=== PATIENT | female | born 1960 | race Caucasian/White ===

== ENCOUNTER → 2019-04-17 07:02 | Outpatient (CLI) | payer SELFPAY ==
[2019-04-17 07:41] LABS: Add Manual Diff / Slide Review NO; Basophils Absolute Auto 0 /uL (0-100); Basophils Percent Auto 0.6 % (0-2); Eosinophils Absolute Auto 300 /uL (0-450); Hematocrit 42.6 % (36-46); Hemoglobin 14.4 g/dL (12.0-16.0); Lymphocytes Absolute Auto 2400 /uL (1100-4500); Lymphocytes Percent Auto 30.2 % (25-40); Mean Corpuscular HGB Conc 33.8 % (30-36); Mean Corpuscular Volume 88.8 fL (80-100); Monocytes Absolute Auto 700 /uL (0-900); Monocytes Percent Auto 8.3 % (3-14); Neutrophils Absolute Auto 4500 /uL (1500-7000); Neutrophils Percent Auto 56.9 % (50-75); Platelet Count 346 X10^3/uL (150-400); Red Cell Distribution Width 13.2 % (11.6-14.8)
[2019-04-17 07:58] LABS: Alanine Aminotransferase 19 IU/L (9-52); Albumin 4.5 g/dL (3.5-5.0); Albumin Globulin Ratio 1.5 (1.0-2.8); Alkaline Phosphatase 90 U/L (38-126); Aspartate Aminotransferase 22 IU/L (14-36); BUN Creatinine Ratio 28.6 (6-22); Bilirubin Total 0.4 mg/dL (0.2-1.3); Blood Urea Nitrogen 20 mg/dL (7-17); Calcium 9.6 mg/dL (8.4-10.2); Carbon Dioxide 27 mmol/L (22-32); Chloride 105 mmol/L (98-107); Cholesterol 236 mg/dL (140-199); Estimated Glomerular Filt Rate > 60.0 mL/min (>60); Globulin 3.1 g/dL (1.7-4.1); Glucose 98 mg/dL (70-100); HDL Cholesterol 38 mg/dL (40-60); HEMOLYSIS < 15 (0-50); LDL Cholesterol Calculated 177 mg/dL (<100); Potassium 4.7 mmol/L (3.4-5.1); Sodium 142 mmol/L (137-145); Total Protein 7.6 g/dL (6.3-8.2); Triglycerides 104 mg/dL (35-150)
[2019-04-17 08:56] LABS: Thyroid Stimulating Hormone 2.57 uIU/mL (0.47-4.68)
== END ==
DX: Z13.228 Encounter for screening for other metabolic disorders (principal); Z13.220 Encounter for screening for lipoid disorders; Z13.0 Encounter for screening for diseases of the blood and blood-forming organs and certain disorders involving the immune mechanism; Z13.29 Encounter for screening for other suspected endocrine disorder
CPT/HCPCS: 36415; 80053; 80061; 84443; 85025

== ENCOUNTER → 2020-10-27 08:42 | Outpatient (CLI) | payer OTHER, SELFPAY ==
[2020-10-27] MEDS: COVID-19 VACC #1, MRNA(MOD) 100 MCG/0.5 ML VIAL IM (08:50)
== END ==
PROVIDERS: Visit Provider Internal Medicine
DX: Z23 Encounter for immunization (principal)
CPT/HCPCS: 0011A; 0012A; 91301

== ENCOUNTER → 2020-11-24 07:59 | Outpatient (CLI) | payer OTHER, SELFPAY ==
[2020-11-24] MEDS: COVID-19 VACC #2, MRNA(MOD) 100 MCG/0.5 ML VIAL IM (08:05)
== END ==
PROVIDERS: Visit Provider Internal Medicine
DX: Z23 Encounter for immunization (principal)
CPT/HCPCS: 0012A; 91301

== ENCOUNTER → 2022-08-03 10:25 | Outpatient (CLI) | payer SELFPAY ==
--- NOTE | 2022-08-03 10:30 | DI.RAD.S_ITS ---
PROCEDURE: XR KNEE LT 3V INDICATIONS: pain TECHNIQUE: 3 views of the knee were acquired. COMPARISON: None. FINDINGS: Bones: No fractures or dislocations. Moderate tricompartmental osteoarthritis is seen most notably in lateral femoral tibial compartment with joint space narrowing, subchondral sclerosis and prominent marginal osteophyte formation. No suspicious bony lesions. Soft tissues: Small suprapatella joint effusion. No suspicious soft tissue calcifications. IMPRESSION: Moderate tricompartmental osteoarthritis and small suprapatellar joint effusion. No fracture or dislocation. Dictated by: Samy Huston M.D. on 08/03/2022 at 11:08 Approved by: Samy Huston M.D. on 08/03/2022 at 11:25
--- NOTE | 2022-08-03 10:30 | DI.RAD.S_ITS ---
PROCEDURE: XR KNEE RT 3V INDICATIONS: pain TECHNIQUE: 3 views of the knee were acquired. COMPARISON: None. FINDINGS: Bones: Patient is status post prior ACL repair with postsurgical changes. Increased radiolucency surrounding tibial screw is noted concerning for hardware loosening suggest clinical correlation. Moderate to severe tricompartmental osteoarthritis is noted most notably in medial femoral tibial compartment. No suspicious bony lesions. Soft tissues: There is small to moderate joint effusion. No suspicious soft tissue calcifications. IMPRESSION: Prior ACL repair. Questionable increased lucency surrounding tibial screw, suggest clinical correlation for possible loosening. Severe tricompartmental osteoarthritis. No acute fracture or dislocation. Small to moderate joint effusion. Dictated by: Samy Huston M.D. on 08/03/2022 at 11:25 Approved by: Samy Huston M.D. on 08/03/2022 at 11:26
== END ==
PROVIDERS: PCP Family Medicine; Referring Provider Family Medicine; Visit Provider Family Medicine
DX: M17.0 Bilateral primary osteoarthritis of knee (principal); M25.461 Effusion, right knee; M25.462 Effusion, left knee; M25.561 Pain in right knee; M25.562 Pain in left knee; Z98.890 Other specified postprocedural states
CPT/HCPCS: 73562

== ENCOUNTER → 2022-08-10 07:20 | Outpatient (CLI) | payer SELFPAY ==
[2022-08-10 08:14] LABS: Add Manual Diff / Slide Review NO; Basophils Absolute Auto 100 /uL (0-100); Basophils Percent Auto 0.8 % (0-2); Eosinophils Absolute Auto 600 /uL (0-450); Eosinophils Percent Auto 6.8 % (2-4); Hematocrit 43.8 % (36-46); Hemoglobin 14.6 g/dL (12.0-16.0); Lymphocytes Absolute Auto 2500 /uL (1100-4500); Lymphocytes Percent Auto 28.7 % (25-40); Mean Corpuscular HGB Conc 33.3 % (30-36); Mean Corpuscular Hemoglobin 29.3 PG (26-34); Monocytes Absolute Auto 800 /uL (0-900); Monocytes Percent Auto 8.7 % (3-14); Neutrophils Absolute Auto 4800 /uL (1500-7000); Platelet Count 352 X10^3/uL (150-400); Red Blood Cell Count 4.98 X10^6/uL (4.0-5.2); Red Cell Distribution Width 13.7 % (11.6-14.8); White Blood Cell Count 8.7 X10^3/uL (4.5-11.0)
[2022-08-10 08:38] LABS: BUN Creatinine Ratio 27.3 (6-22); Blood Urea Nitrogen 24 mg/dL (7-17); Calcium 9.3 mg/dL (8.4-10.2); Carbon Dioxide 24 mmol/L (22-32); Chloride 105 mmol/L (98-107); Cholesterol 265 mg/dL (140-199); Estimated Glomerular Filt Rate > 60 mL/min (>60); Glucose 86 mg/dL (80-110); HDL Cholesterol 50 mg/dL (40-60); HEMOLYSIS < 15 (0-50); LDL Cholesterol Calculated 194 mg/dL (<100); Potassium 4.3 mmol/L (3.4-5.1); Sodium 138 mmol/L (137-145); Triglycerides 106 mg/dL (35-150)
[2022-08-10 09:50] LABS: Free T4, Direct Thyroxine 0.74 ng/dL (0.78-2.19)
== END ==
PROVIDERS: PCP Family Medicine; Referring Provider Family Medicine; Visit Provider Family Medicine
DX: Z13.220 Encounter for screening for lipoid disorders (principal); Z86.39 Personal history of other endocrine, nutritional and metabolic disease
CPT/HCPCS: 36415; 80048; 80061; 84439; 84443; 85025

== ENCOUNTER 2022-12-17 13:45 | Outpatient (RCR) | payer SELFPAY ==
--- NOTE | 2022-11-05 17:49 | PT.OIE ---
Current Diagnoses Bilateral primary osteoarthritis of knee (11/05/22) Pain in right knee (11/05/22) Pain in left knee (11/05/22) Past Medical History (Last Updated 09/05/22 @ 12:28 by Augustine San DO) Bilateral knee pain Hypothyroidism (acquired) Pure hypercholesterolemia Past Surgical History (Last Updated 08/07/22 @ 10:37 by Beti Alonzo) Anesthesia Hx of knee surgery (~1980) Hx of knee surgery (~1988) Visit Care Team Role Provider Type Augustine San DO Family Provider Physician Primary Care Provider Specialty: Family Practice Address: [address] [place] [address], [id number] Email: Nigel Landaverde MD Attending Provider Non-Staff Referring Provider Specialty: Orthopedics Orthopedic Surgery Address: [address] [place] [address], [id number] Email: Physical Therapy Initial Evaluation PT-OP-A Visit Information Start: 11/05/22 17:32 Freq: Status: Active Protocol: Document 11/05/22 12:00 DCW (Rec: 11/05/22 17:38 [facility] [id number]) Out-Patient Physical Therapy Visit Information Visit Information Visit Type Initial Evaluation Visit Start Time 12:00 Visit Stop Time 12:35 Total Visit Minutes 35 Visit Number 1 Number of SLASHER TENDER Visits 0 Evaluation Information Evaluation Date 11/05/22 PT-OP-B Current Condition Start: 11/05/22 17:32 Freq: Status: Active Protocol: Document 11/05/22 12:00 DCW (Rec: 11/05/22 17:38 [facility] [id number]) Current Condition History of Current Condition Onset Date 11/07/22 Current Complaints Pre-op B TKA History of Current Condition Pt is a 61 year old female presenting to skilled therapy for a pre-op assessment and planning session two days prior to her bilateral TKA, which she is undergoing on . Pt reports she has a planned one night stay in the hospital post-op, and is then planning on returning home with 's assistance. reports he has taken off work for the two weeks following pt's surgery. Report they have no stairs into the home, and no stairs she will need to use upon returning home, as she will be able to stay on the first floor. They already have a FWW, SPC, BSC, and a high recliner to assist in getting up into standing. PT-OP-C Subjective Start: 11/05/22 17:32 Freq: Status: Active Protocol: Document 11/05/22 12:00 DCW (Rec: 11/05/22 17:38 DCW [id number]) OP-PT Subjective Patient Comments Patient Comments I have had a few family memebers who all did a bilateral TKA, so I have a pretty good idea of what I'm getting myself into. PT-OP-K Range of Motion Start: 11/05/22 17:32 Freq: Status: Active Protocol: Document 11/05/22 12:00 DCW (Rec: 11/05/22 17:39 DCW [id number]) Knee Goniometric Range of Motion Knee Right Knee ROM WFL No Patient Position Sitting Flexion Active (degrees) 90 Extension Active (degrees) 0 Left Knee ROM WFL No Patient Position Sitting Flexion Active (degrees) 90 Extension Active (degrees) 0 PT-OP-Q Treatments Start: 11/05/22 17:32 Freq: Status: Active Protocol: Document 11/05/22 12:00 DCW (Rec: 11/05/22 17:39 DCW [id number]) Self-Care/Home Management Treatment Education Other Education Reviewed post-op HEP, pain management, post-op expectations, safety, and gait /transfer strategies. PT-OP-T Assessment and Plan Start: 11/05/22 17:32 Freq: Status: Active Protocol: Document 11/05/22 12:00 DCW (Rec: 11/05/22 17:48 DCW [id number]) Physical Therapy Assessment Rehab Potential Rehabilitation Potential Good Evaluation Complexity Number of Personal Factors/Comorbidities 0 Number of Body Systems Impaired 1-2 Clinical Presentation at Evaluation Stable Goals One Impairment Pt does not have an appropriate home exercise program Short Term Goal (STG) Pt to be independent and compliant with an appropriate post-op HEP STG Duration 11/12/22 Assessment Summary Assessment Pt presents to skilled therapy for a pre-op assessment and education session prior to her bilateral TKA scheduled for . Pt currently displays fairly limited ROM bilaterally , ~0-90? on both knees. Reviewed post-op HEP, which pt demonstrates good understanding for, as well as post-surgical expectations, gait/transfer tips, FWW sizing /fitting, limiting use of pillows under knees, icing/ pain modalities, and reviewed likely treatment scenarios. Per referral, pt supposed to attend therapy 3-4x 1st week, 3x 2nd week, and 2x/week afterward. Unfortunately, due to pt finances, pt is only going to attend 1x/week, and will just do as much as she can independently at home. Will reassess pt upon return from surgery at next PT appointment on 11/12/22. Physical Therapy Plan Frequency and Duration Frequency of Treatment 1-2x/week Plan of Care Start Date 11/05/22 Plan of Care End Date 11/19/22 Therapeutic Interventions Therapeutic Interventions Balance Training,Gait Training ,Home Exercise Program,Joint Mobilizations,Manual Therapy, Neuromuscular Re-education, Patient/Caregiver Education, Self-Care/Home Management,Soft Tissue Mobilization,Taping, Therapeutic Activities, Therapeutic Exercises Modalities Cold Pack/Ice Massage,Electric Stimulation,Hot Packs, Ultrasound Next Visit Focus/Plan Next Note Type Re-Evaluation Next Visit Plan Post-op bilateral TKA re- evaluation
--- NOTE | 2022-11-05 17:49 | PT.OPPOC ---
Physical, Occupational & Speech Therapy At [facility] Current Diagnoses Bilateral primary osteoarthritis of knee (11/05/22) Pain in right knee (11/05/22) Pain in left knee (11/05/22) Visit Care Team Role Provider Type Augustine San DO Family Provider Physician Primary Care Provider Specialty: Family Practice Address: [address] [place] [address], [phone] Email: Nigel Landaverde MD Attending Provider Non-Staff Referring Provider Specialty: Orthopedics Orthopedic Surgery Address: [address] [place] [address], [phone] Email: Plan Of Care PT-OP-T Assessment and Plan Start: 11/05/22 17:32 Freq: Status: Active Protocol: Document 11/05/22 12:00 DCW (Rec: 11/05/22 17:48 DCW [id number]) Physical Therapy Assessment Rehab Potential Rehabilitation Potential Good Evaluation Complexity Number of Personal Factors/Comorbidities 0 Number of Body Systems Impaired 1-2 Clinical Presentation at Evaluation Stable Goals One Impairment Pt does not have an appropriate home exercise program Short Term Goal (STG) Pt to be independent and compliant with an appropriate post-op HEP STG Duration 11/12/22 Assessment Summary Assessment Pt presents to skilled therapy for a pre-op assessment and education session prior to her bilateral TKA scheduled for . Pt currently displays fairly limited ROM bilaterally , ~0-90? on both knees. Reviewed post-op HEP, which pt demonstrates good understanding for, as well as post-surgical expectations, gait/transfer tips, FWW sizing /fitting, limiting use of pillows under knees, icing/ pain modalities, and reviewed likely treatment scenarios. Per referral, pt supposed to attend therapy 3-4x 1st week, 3x 2nd week, and 2x/week afterward. Unfortunately, due to pt finances, pt is only going to attend 1x/week, and will just do as much as she can independently at home. Will reassess pt upon return from surgery at next PT appointment on 11/12/22. Physical Therapy Plan Frequency and Duration Frequency of Treatment 1-2x/week Plan of Care Start Date 11/05/22 Plan of Care End Date 11/19/22 Therapeutic Interventions Therapeutic Interventions Balance Training,Gait Training ,Home Exercise Program,Joint Mobilizations,Manual Therapy, Neuromuscular Re-education, Patient/Caregiver Education, Self-Care/Home Management,Soft Tissue Mobilization,Taping, Therapeutic Activities, Therapeutic Exercises Modalities Cold Pack/Ice Massage,Electric Stimulation,Hot Packs, Ultrasound Next Visit Focus/Plan Next Note Type Re-Evaluation Next Visit Plan Post-op bilateral TKA re- evaluation Plan of Care Dates Plan of Care Start Date 11/05/22 Plan of Care End Date 11/19/22 Electronically Signed by: Abhishek Yoon, PT 11/05/22 7904 If you are in agreement with this Plan of Care, please return a signed and dated copy. I have reviewed this Plan of Care and certify that the skilled therapy services above are required to meet the patient?s needs. Physician Signature Date Printed Name and Credentials Clinical Instructor Signature Printed Name and Credentials
--- NOTE | 2022-11-12 12:55 | PT.OTRE ---
Current Diagnoses Bilateral primary osteoarthritis of knee (11/12/22) Pain in right knee (11/12/22) Pain in left knee (11/12/22) Past Medical History (Last Updated 09/05/22 @ 12:28 by Augustine San DO) Bilateral knee pain Hypothyroidism (acquired) Pure hypercholesterolemia Surgical History (Last Updated 08/07/22 @ 10:37 by Beti Alonzo) Anesthesia Hx of knee surgery (~1980) Hx of knee surgery (~1988) Visit Care Team Role Provider Type uAgustine San DO Family Provider Physician Primary Care Provider Specialty: Family Practice Address: [address] [place] [address], [phone] Email: Nigel Landaverde MD Attending Provider Non-Staff Referring Provider Specialty: Orthopedics Orthopedic Surgery Address: [address] [place] [address], [address] Email: Physical Therapy Re-Evaluation PT-OP-A Visit Information Start: 11/05/22 17:32 Freq: Status: Active Protocol: Document 11/12/22 12:00 DCW (Rec: 11/12/22 12:54 [facility] [id number]) Out-Patient Physical Therapy Visit Information Visit Information Visit Type Re-Evaluation Visit Start Time 12:00 Visit Stop Time 12:45 Total Visit Minutes 45 Visit Number 2 Number of SOILS ANALYST Visits 0 Evaluation Information Evaluation Date 11/05/22 PT-OP-B Current Condition Start: 11/05/22 17:32 Freq: Status: Active Protocol: Document 11/12/22 12:00 DCW (Rec: 11/12/22 12:54 [facility] [id number]) Current Condition History of Current Condition Onset Date 11/07/22 Current Complaints B TKA History of Current Condition Pt returnes to PT after undergoing bilateral TKA on . Pt had a pre-op rehab appointment last week, and demonstrated good understanding of post-op rehab plans. Pt experiencing fairly minimal pain today, ambulating with FWW for support, not overly reliant on UEs. Pt currently pretty happy with mobility level. PT-OP-C Subjective Start: 11/05/22 17:32 Freq: Status: Active Protocol: Document 11/12/22 12:00 DCW (Rec: 11/12/22 12:54 DCW [id number]) OP-PT Subjective Patient Comments Patient Comments It's much better than I was actually expecting. PT-OP-D Balance Start: 11/05/22 17:32 Freq: Status: Active Protocol: Document 11/12/22 12:00 DCW (Rec: 11/12/22 12:54 DCW [id number]) OP-PT Balance Assessment Sitting Balance Static Sitting Balance Ability Normal Dynamic Sitting Balance Ability Normal Standing Balance Static Standing Balance Ability Good Dynamic Standing Balance Ability Fair Jara Fall Scale Copyright Permission Marek JOHNSON, Marek RM, Satish SJ. Development of a scale to identify the fall- prone patient. Can J Aging 1989;8;366-7. Nerissa Jara (2009). Preventing patient falls. (2nd ed). [place]: [employer]. PT-OP-E Functional Tests Start: 11/05/22 17:32 Freq: Status: Active Protocol: Document 11/12/22 12:00 DCW (Rec: 11/12/22 12:54 DCW [id number]) Functional Tests 6 Minute Walk Test Distance 327 Device Used FWW Comments .91 ft/sec PT-OP-K Range of Motion Start: 11/05/22 17:32 Freq: Status: Active Protocol: Document 11/12/22 12:00 DCW (Rec: 11/12/22 12:54 DCW [id number]) Knee Goniometric Range of Motion Knee Measured in Degrees Right Knee ROM WFL No Patient Position Sitting Flexion Active (degrees) 90 Flexion Passive (degrees) 99 Extension Active (degrees) 0 Extension Passive (degrees) 0 Comments 8 deg extension lag Left Knee ROM WFL No Patient Position Sitting Flexion Active (degrees) 84 Flexion Passive (degrees) 90 Extension Active (degrees) 0 Comments No extension lag PT-OP-M Strength Start: 11/05/22 17:32 Freq: Status: Active Protocol: Document 11/12/22 12:00 DCW (Rec: 11/12/22 12:54 DCW [id number]) Knee Strength Knee Manual Muscle Testing Right Flexion (S2) 3 Fair Extension (L3) 3+ Fair+ Left Flexion (S2) 3 Fair Extension (L3) 3+ Fair+ PT-OP-Q Treatments Start: 11/05/22 17:32 Freq: Status: Active Protocol: Document 11/12/22 12:00 DCW (Rec: 11/12/22 12:55 DCW [id number]) Cardio Equipment Recumbent Bicycle Duration (Minutes) 5 Seat Position 4 Other full rotations fwd/bkwd PT-OP-T Assessment and Plan Start: 11/05/22 17:32 Freq: Status: Active Protocol: Document 11/12/22 12:00 DCW (Rec: 11/12/22 12:54 DC[facility] [id number]) Physical Therapy Assessment Goals Three Impairment Pt ambulates 327' with FWW during 6MWT Chcf Goal (LTG) Pt to increased distance ambulated during 6MWT to at least 709' without an AD. This puts her gait speed at >1.97 ft/sec, below which is indicative of further functional decline. LTG Duration 01/10/23 Two Impairment Knee flexion AROM limited to 90? R and 84? L Dielectric Embossing Machine Operator Goal (LTG) Pt to increase bilateral flexion to 120? in order to improve ability to perform daily activities LTG Duration 01/10/23 One Impairment Pt does not have an appropriate home exercise program Short Term Goal (STG) Pt to be independent and compliant with an appropriate post-op HEP STG Duration 12/10/22 Assessment Summary Assessment Pt doing incredivly well POD # 5, extension in bilateral knees to 0?, slight extension lag (8?) in right knee. Pt ambulating with good posture and appropriate step-through gait pattern using FWW. Pt has thus far been very compliant with her post-op HEP. Was able to perform full rotations on the recumbent bike already, both forward and backward. Pt should benefit from continued skilled therapy focusing on improving gait, ROM, balance, and functional mobility. Physical Therapy Plan Frequency and Duration Frequency of Treatment 1-2x/week Plan of Care Start Date 11/12/22 Plan of Care End Date 01/10/23 Therapeutic Interventions Therapeutic Interventions Balance Training,Gait Training ,Home Exercise Program,Joint Mobilizations,Manual Therapy, Neuromuscular Re-education, Patient/Caregiver Education, Self-Care/Home Management,Soft Tissue Mobilization,Taping, Therapeutic Activities, Therapeutic Exercises Modalities Cold Pack/Ice Massage,Electric Stimulation,Hot Packs, Ultrasound Next Visit Focus/Plan Next Note Type Treatment Note Next Visit Plan Active/passive ROM, strengthening, weaning off AD as tolerated
--- NOTE | 2022-11-12 12:55 | PT.OPPOC ---
Physical, Occupational & Speech Therapy At [facility] Current Diagnoses Bilateral primary osteoarthritis of knee (11/12/22) Pain in right knee (11/12/22) Pain in left knee (11/12/22) Visit Care Team Role Provider Type Augustine San DO Family Provider Physician Primary Care Provider Specialty: Family Practice Address: [address] [place] [address], [phone] Email: Nigel Landaverde MD Attending Provider Non-Staff Referring Provider Specialty: Orthopedics Orthopedic Surgery Address: [address] [place] [address], [address] Email: Plan Of Care PT-OP-T Assessment and Plan Start: 11/05/22 17:32 Freq: Status: Active Protocol: Document 11/12/22 12:00 DCW (Rec: 11/12/22 12:54 DCW [id number]) Physical Therapy Assessment Goals Three Impairment Pt ambulates 327' with FWW during 6MWT Private Eye Goal (LTG) Pt to increased distance ambulated during 6MWT to at least 709' without an AD. This puts her gait speed at >1.97 ft/sec, below which is indicative of further functional decline. LTG Duration 01/10/23 Two Impairment Knee flexion AROM limited to 90? R and 84? L Private Eye Goal (LTG) Pt to increase bilateral flexion to 120? in order to improve ability to perform daily activities LTG Duration 01/10/23 One Impairment Pt does not have an appropriate home exercise program Short Term Goal (STG) Pt to be independent and compliant with an appropriate post-op HEP STG Duration 12/10/22 Assessment Summary Assessment Pt doing incredivly well POD # 5, extension in bilateral knees to 0?, slight extension lag (8?) in right knee. Pt ambulating with good posture and appropriate step-through gait pattern using FWW. Pt has thus far been very compliant with her post-op HEP. Was able to perform full rotations on the recumbent bike already, both forward and backward. Pt should benefit from continued skilled therapy focusing on improving gait, ROM, balance, and functional mobility. Physical Therapy Plan Frequency and Duration Frequency of Treatment 1-2x/week Plan of Care Start Date 11/12/22 Plan of Care End Date 01/10/23 Therapeutic Interventions Therapeutic Interventions Balance Training,Gait Training ,Home Exercise Program,Joint Mobilizations,Manual Therapy, Neuromuscular Re-education, Patient/Caregiver Education, Self-Care/Home Management,Soft Tissue Mobilization,Taping, Therapeutic Activities, Therapeutic Exercises Modalities Cold Pack/Ice Massage,Electric Stimulation,Hot Packs, Ultrasound Next Visit Focus/Plan Next Note Type Treatment Note Next Visit Plan Active/passive ROM, strengthening, weaning off AD as tolerated Plan of Care Dates Plan of Care Start Date 11/12/22 Plan of Care End Date 01/10/23 Electronically Signed by: Abhishek Yoon, PT 11/12/22 6716 If you are in agreement with this Plan of Care, please return a signed and dated copy. I have reviewed this Plan of Care and certify that the skilled therapy services above are required to meet the patient?s needs. Physician Signature Date Printed Name and Credentials Clinical Instructor Signature Printed Name and Credentials
--- NOTE | 2022-11-20 09:05 | PT.OTN ---
Current Diagnoses Bilateral primary osteoarthritis of knee (11/20/22) Pain in right knee (11/20/22) Pain in left knee (11/20/22) Physical Therapy Treatment Note PT-OP-A Visit Information Start: 11/05/22 17:32 Freq: Status: Active Protocol: Document 11/20/22 07:26 [facility] (Rec: 11/20/22 09:05 [facility] [id number]) Out-Patient Physical Therapy Visit Information Visit Information Visit Type Treatment Note Visit Start Time 07:31 Visit Stop Time 08:13 Total Visit Minutes 42 Visit Number 3 Number of PLUGGER Visits 0 PT-OP-B Current Condition Start: 11/05/22 17:32 Freq: Status: Active Protocol: Document 11/12/22 12:00 [facility] (Rec: 11/12/22 12:54 DCW [id number]) Current Condition History of Current Condition Onset Date 11/07/22 Current Complaints B TKA History of Current Condition Pt returnes to PT after undergoing bilateral TKA on . Pt had a pre-op rehab appointment last week, and demonstrated good understanding of post-op rehab plans. Pt experiencing fairly minimal pain today, ambulating with FWW for support, not overly reliant on UEs. Pt currently pretty happy with mobility level. PT-OP-C Subjective Start: 11/05/22 17:32 Freq: Status: Active Protocol: Document 11/20/22 07:26 [facility] (Rec: 11/20/22 09:05 [facility] [id number]) OP-PT Subjective Patient Comments Patient Comments Pt reports got her shanel out yesterday and her appt went well. PA said incisions look pretty good. Pt reports she has dizziness on/off. PT-OP-D Balance Start: 11/05/22 17:32 Freq: Status: Active Protocol: Document 11/12/22 12:00 [facility] (Rec: 11/12/22 12:54 [facility] [id number]) OP-PT Balance Assessment Sitting Balance Static Sitting Balance Ability Normal Dynamic Sitting Balance Ability Normal Standing Balance Static Standing Balance Ability Good Dynamic Standing Balance Ability Fair Jara Fall Scale Copyright Permission PT-OP-E Functional Tests Start: 11/05/22 17:32 Freq: Status: Active Protocol: Document 11/12/22 12:00 [facility] (Rec: 11/12/22 12:54 [facility] [id number]) Functional Tests 6 Minute Walk Test Distance 327 Device Used FWW Comments .91 ft/sec PT-OP-K Range of Motion Start: 11/05/22 17:32 Freq: Status: Active Protocol: Document 11/12/22 12:00 [facility] (Rec: 11/12/22 12:54 [facility] [id number]) Knee Goniometric Range of Motion Knee Right Knee ROM WFL No Patient Position Sitting Flexion Active (degrees) 90 Flexion Passive (degrees) 99 Extension Active (degrees) 0 Extension Passive (degrees) 0 Comments 8 deg extension lag Left Knee ROM WFL No Patient Position Sitting Flexion Active (degrees) 84 Flexion Passive (degrees) 90 Extension Active (degrees) 0 Comments No extension lag PT-OP-M Strength Start: 11/05/22 17:32 Freq: Status: Active Protocol: Document 11/12/22 12:00 [facility] (Rec: 11/12/22 12:54 [facility] [id number]) Knee Strength Knee Manual Muscle Testing Right Flexion (S2) 3 Fair Extension (L3) 3+ Fair+ Left Flexion (S2) 3 Fair Extension (L3) 3+ Fair+ PT-OP-Q Treatments Start: 11/05/22 17:32 Freq: Status: Active Protocol: Document 11/20/22 07:26 [facility] (Rec: 11/20/22 09:05 [facility] [id number]) Cardio Equipment Recumbent Bicycle Duration (Minutes) 6 Resistance up to 2 Seat Position 4 Other full rotations fwd/bkwd after 1 min rocking Gym Equipment Shuttle Recovery squats Resistance 50# Shuttle Recovery Platform Stable Reps/Time 20 Therapeutic Ball knee flex Exercise Details b Ball Size/Color 55cm Body Position Supine Reps/Duration 15x5 sec hold Therapeutic Exercises Sitting Exercises knee flex Sitting Exercise Name w/scoot fwd Side bilateral Reps/Minutes 15 sec x5 Standing Exercises ext Side bilateral Equipment Used L1 Reps/Minutes 20 sidesteps Side bilateral Equipment Used L1 Reps/Minutes 20ft B heel raises Side bilateral Equipment Used rail Reps/Minutes 20 Gait Training Gait Activity cane Comments 20ft w/SPC x8 cues for knee flex PT-OP-T Assessment and Plan Start: 11/05/22 17:32 Freq: Status: Active Protocol: Document 11/20/22 07:26 [facility] (Rec: 11/20/22 09:05 [facility] [id number]) Physical Therapy Assessment Goals Three Impairment Pt ambulates 327' with FWW during 6MWT School Occupational Therapist Goal (LTG) Pt to increased distance ambulated during 6MWT to at least 709' without an AD. This puts her gait speed at >1.97 ft/sec, below which is indicative of further functional decline. LTG Duration 01/10/23 Two Impairment Knee flexion AROM limited to 90? R and 84? L School Occupational Therapist Goal (LTG) Pt to increase bilateral flexion to 120? in order to improve ability to perform daily activities LTG Duration 01/10/23 One Impairment Pt does not have an appropriate home exercise program Short Term Goal (STG) Pt to be independent and compliant with an appropriate post-op HEP STG Duration 12/10/22 Assessment Summary Assessment Pt did well with good ROM today and tolerated strengthening activities well. She is motivated to progress her mobility and was able to start amb w/cane. Encouraged to do in small bouts with her to practice at home to slowly wean towards it. She was able to improve mechanics w/cues today. Physical Therapy Plan Frequency and Duration Frequency of Treatment 1-2x/week Plan of Care Start Date 11/12/22 Plan of Care End Date 01/10/23 Next Visit Focus/Plan Next Note Type Treatment Note Next Visit Plan Active/passive ROM, strengthening, weaning off AD as tolerated
--- NOTE | 2022-11-26 11:17 | PT.OTN ---
Current Diagnoses Bilateral primary osteoarthritis of knee (11/26/22) Pain in right knee (11/26/22) Pain in left knee (11/26/22) Physical Therapy Treatment Note PT-OP-A Visit Information Start: 11/05/22 17:32 Freq: Status: Active Protocol: Document 11/26/22 08:58 [facility] (Rec: 11/26/22 11:16 [facility] [id number]) Out-Patient Physical Therapy Visit Information Visit Information Visit Type Treatment Note Visit Start Time 09:04 Visit Stop Time 09:46 Total Visit Minutes 42 Visit Number 4 Number of HEAD STOCK OPERATOR Visits 0 PT-OP-B Current Condition Start: 11/05/22 17:32 Freq: Status: Active Protocol: Document 11/12/22 12:00 [facility] (Rec: 11/12/22 12:54 [facility] [id number]) Current Condition History of Current Condition Onset Date 11/07/22 Current Complaints B TKA History of Current Condition Pt returnes to PT after undergoing bilateral TKA on . Pt had a pre-op rehab appointment last week, and demonstrated good understanding of post-op rehab plans. Pt experiencing fairly minimal pain today, ambulating with FWW for support, not overly reliant on UEs. Pt currently pretty happy with mobility level. PT-OP-C Subjective Start: 11/05/22 17:32 Freq: Status: Active Protocol: Document 11/26/22 08:58 [facility] (Rec: 11/26/22 11:16 [facility] [id number]) OP-PT Subjective Patient Comments Patient Comments Pt reports she feels like her ROM and everything is coming along well. She is noticing R calf mm tightness sometimes. When questioned, she said she mostly notices it after heel raises or when walking a lot. She can relieve it with ice and elevation. She has not noticed any redness or heat to the area or any change in swelling. Pt reports even before surgery she would get this tight/cramp feeling in the calf so it isn't something new. Patient Reported Progress Improving PT-OP-D Balance Start: 11/05/22 17:32 Freq: Status: Active Protocol: Document 11/12/22 12:00 [facility] (Rec: 11/12/22 12:54 [facility] [id number]) OP-PT Balance Assessment Sitting Balance Static Sitting Balance Ability Normal Dynamic Sitting Balance Ability Normal Standing Balance Static Standing Balance Ability Good Dynamic Standing Balance Ability Fair Jara Fall Scale Copyright Permission PT-OP-E Functional Tests Start: 11/05/22 17:32 Freq: Status: Active Protocol: Document 11/12/22 12:00 [facility] (Rec: 11/12/22 12:54 [facility] [id number]) Functional Tests 6 Minute Walk Test Distance 327 Device Used FWW Comments .91 ft/sec PT-OP-K Range of Motion Start: 11/05/22 17:32 Freq: Status: Active Protocol: Document 11/12/22 12:00 [facility] (Rec: 11/12/22 12:54 [facility] [id number]) Knee Goniometric Range of Motion Knee Right Knee ROM WFL No Patient Position Sitting Flexion Active (degrees) 90 Flexion Passive (degrees) 99 Extension Active (degrees) 0 Extension Passive (degrees) 0 Comments 8 deg extension lag Left Knee ROM WFL No Patient Position Sitting Flexion Active (degrees) 84 Flexion Passive (degrees) 90 Extension Active (degrees) 0 Comments No extension lag PT-OP-M Strength Start: 11/05/22 17:32 Freq: Status: Active Protocol: Document 11/12/22 12:00 [facility] (Rec: 11/12/22 12:54 [facility] [id number]) Knee Strength Knee Manual Muscle Testing Right Flexion (S2) 3 Fair Extension (L3) 3+ Fair+ Left Flexion (S2) 3 Fair Extension (L3) 3+ Fair+ PT-OP-Q Treatments Start: 11/05/22 17:32 Freq: Status: Active Protocol: Document 11/26/22 08:58 [facility] (Rec: 11/26/22 11:16 [facility] [id number]) Cardio Equipment Recumbent Bicycle Duration (Minutes) 6 Resistance 4 Seat Position 4 Other full rotations Gym Equipment Shuttle Recovery squats Resistance 62# Shuttle Recovery Platform Stable Reps/Time 20 Therapeutic Ball knee flex Exercise Details b Ball Size/Color 55cm Body Position Supine Reps/Duration 10x5 sec hold Therapeutic Exercises Supine Exercises bridge Side bilateral Reps/Minutes 15 Standing Exercises squats Standing Exercise Name mini at bar Side bilateral Reps/Minutes 15 step ups Side bilateral Equipment Used 4 in, 6 in step Reps/Minutes 12 ea Comments 1 rail ext Side bilateral Equipment Used L1 Reps/Minutes 15 sidesteps Side bilateral Equipment Used L1 Reps/Minutes 20ft B x2 Manual Therapy Treatment Joint Mobilizations ankle Comments R distraction calcaneus & talus FM R calcaneal lat glide FM R tib AP distal FM PT-OP-T Assessment and Plan Start: 11/05/22 17:32 Freq: Status: Active Protocol: Document 11/26/22 08:58 [facility] (Rec: 11/26/22 11:16 [facility] [id number]) Physical Therapy Assessment Goals Three Impairment Pt ambulates 327' with FWW during 6MWT Secret Service Agent Goal (LTG) Pt to increased distance ambulated during 6MWT to at least 709' without an AD. This puts her gait speed at >1.97 ft/sec, below which is indicative of further functional decline. LTG Duration 01/10/23 Two Impairment Knee flexion AROM limited to 90? R and 84? L Nursing Home Goal (LTG) Pt to increase bilateral flexion to 120? in order to improve ability to perform daily activities LTG Duration 01/10/23 One Impairment Pt does not have an appropriate home exercise program Short Term Goal (STG) Pt to be independent and compliant with an appropriate post-op HEP STG Duration 12/10/22 Assessment Summary Assessment Pt has no redness/heat or swelling difference btwn calves. She is encouraged to call MD if this gets worse. L 0-102; R 0-108. She did a great job w/exercises today and was given glute work for home. she is limited in B ankle DF which likely contributes to pt difficulty w /gait mechanics and stairs but idd improve w/manual on R Physical Therapy Plan Frequency and Duration Frequency of Treatment 1-2x/week Plan of Care Start Date 11/12/22 Plan of Care End Date 01/10/23 Next Visit Focus/Plan Next Note Type Treatment Note Next Visit Plan Active/passive ROM, strengthening, weaning off AD as tolerated
--- NOTE | 2022-12-03 14:30 | PT.OTN ---
Current Diagnoses Bilateral primary osteoarthritis of knee (12/03/22) Pain in right knee (12/03/22) Pain in left knee (12/03/22) Physical Therapy Treatment Note PT-OP-A Visit Information Start: 11/05/22 17:32 Freq: Status: Active Protocol: Document 12/03/22 13:49 [facility] (Rec: 12/03/22 14:30 [facility] [id number]) Out-Patient Physical Therapy Visit Information Visit Information Visit Type Treatment Note Visit Start Time 13:49 Visit Stop Time 14:30 Total Visit Minutes 41 Visit Number 5 Number of COMMISSION ASSOCIATE Visits 0 Evaluation Information Evaluation Date 11/05/22 PT-OP-B Current Condition Start: 11/05/22 17:32 Freq: Status: Active Protocol: Document 11/12/22 12:00 [facility] (Rec: 11/12/22 12:54 DC[facility] [id number]) Current Condition History of Current Condition Onset Date 11/07/22 Current Complaints B TKA History of Current Condition Pt returnes to PT after undergoing bilateral TKA on . Pt had a pre-op rehab appointment last week, and demonstrated good understanding of post-op rehab plans. Pt experiencing fairly minimal pain today, ambulating with FWW for support, not overly reliant on UEs. Pt currently pretty happy with mobility level. PT-OP-C Subjective Start: 11/05/22 17:32 Freq: Status: Active Protocol: Document 12/03/22 13:49 [facility] (Rec: 12/03/22 14:30 [facility] [id number]) OP-PT Subjective Patient Comments Patient Comments I feel like it's getting better every day. PT-OP-D Balance Start: 11/05/22 17:32 Freq: Status: Active Protocol: Document 11/12/22 12:00 [facility] (Rec: 11/12/22 12:54 [facility] [id number]) OP-PT Balance Assessment Sitting Balance Static Sitting Balance Ability Normal Dynamic Sitting Balance Ability Normal Standing Balance Static Standing Balance Ability Good Dynamic Standing Balance Ability Fair Jara Fall Scale Copyright Permission PT-OP-E Functional Tests Start: 11/05/22 17:32 Freq: Status: Active Protocol: Document 11/12/22 12:00 [facility] (Rec: 11/12/22 12:54 DC[facility] [id number]) Functional Tests 6 Minute Walk Test Distance 327 Device Used FWW Comments .91 ft/sec PT-OP-K Range of Motion Start: 11/05/22 17:32 Freq: Status: Active Protocol: Document 11/12/22 12:00 [facility] (Rec: 11/12/22 12:54 [facility] [id number]) Knee Goniometric Range of Motion Knee Right Knee ROM WFL No Patient Position Sitting Flexion Active (degrees) 90 Flexion Passive (degrees) 99 Extension Active (degrees) 0 Extension Passive (degrees) 0 Comments 8 deg extension lag Left Knee ROM WFL No Patient Position Sitting Flexion Active (degrees) 84 Flexion Passive (degrees) 90 Extension Active (degrees) 0 Comments No extension lag PT-OP-M Strength Start: 11/05/22 17:32 Freq: Status: Active Protocol: Document 11/12/22 12:00 [facility] (Rec: 11/12/22 12:54 DCW [id number]) Knee Strength Knee Manual Muscle Testing Right Flexion (S2) 3 Fair Extension (L3) 3+ Fair+ Left Flexion (S2) 3 Fair Extension (L3) 3+ Fair+ PT-OP-Q Treatments Start: 11/05/22 17:32 Freq: Status: Active Protocol: Document 12/03/22 13:49 [facility] (Rec: 12/03/22 14:30 [facility] [id number]) Cardio Equipment Recumbent Bicycle Duration (Minutes) 6 Resistance 4 Seat Position 4 Other full rotations Gym Equipment Shuttle Recovery squats Resistance 75# Shuttle Recovery Platform Stable Reps/Time 20 Therapeutic Ball knee flex Exercise Details b /c strap Ball Size/Color 55cm Body Position Supine Reps/Duration 10x5 sec hold Comments PROM Flexion R = 116 PROM Flexion L = 105 Therapeutic Exercises Standing Exercises Abduction Standing Exercise Name Hip Abduction Side bilateral Resistance Green Reps/Minutes x15 TKE Standing Exercise Name TKE Side bilateral Resistance Lv 3 squats Standing Exercise Name mini at bar Side bilateral Reps/Minutes 15 step ups Side bilateral Equipment Used 6 in step Reps/Minutes x15 Comments 1 rail ext Standing Exercise Name Hip Extension Side bilateral Resistance Green Reps/Minutes 15 Gait Training Gait Activity cane Device Used SPC, None Level of Assistance SBA Distance/Duration 170' x2 Comments /c and /s SPC Manual Therapy Treatment Joint Mobilizations patellar Joint B Patella mobs Direction inf/sup Grade III Body Position Supine PT-OP-T Assessment and Plan Start: 11/05/22 17:32 Freq: Status: Active Protocol: Document 12/03/22 13:49 [facility] (Rec: 12/03/22 14:30 [facility] [id number]) Physical Therapy Assessment Goals Three Impairment Pt ambulates 327' with FWW during 6MWT Nursing Home Goal (LTG) Pt to increased distance ambulated during 6MWT to at least 709' without an AD. This puts her gait speed at >1.97 ft/sec, below which is indicative of further functional decline. LTG Duration 01/10/23 Two Impairment Knee flexion AROM limited to 90? R and 84? L Nursing Home Goal (LTG) Pt to increase bilateral flexion to 120? in order to improve ability to perform daily activities LTG Duration 01/10/23 One Impairment Pt does not have an appropriate home exercise program Short Term Goal (STG) Pt to be independent and compliant with an appropriate post-op HEP STG Duration 12/10/22 Assessment Summary Assessment Pt continues to pregress very well, ambulation without AD looking good, informed pt she can wean off SPC at home. Additionally, due to pt concerns regarding co-pay costs, agreeable to decrease ferquency to every other week. Physical Therapy Plan Frequency and Duration Frequency of Treatment 1-2x/week Plan of Care Start Date 11/12/22 Plan of Care End Date 01/10/23 Next Visit Focus/Plan Next Note Type Treatment Note Next Visit Plan Active/passive ROM, strengthening, weaning off AD as tolerated
--- NOTE | 2022-12-17 14:32 | PT.OTN ---
Current Diagnoses Bilateral primary osteoarthritis of knee (12/17/22) Pain in right knee (12/17/22) Pain in left knee (12/17/22) Physical Therapy Treatment Note PT-OP-A Visit Information Start: 11/05/22 17:32 Freq: Status: Active Protocol: Document 12/17/22 13:50 [facility] (Rec: 12/17/22 14:32 [facility] [id number]) Out-Patient Physical Therapy Visit Information Visit Information Visit Type Treatment Note Visit Start Time 13:50 Visit Stop Time 14:30 Total Visit Minutes 40 Visit Number 6 Number of CONSTRUCTION EQUIPMENT MECHANIC HELPER Visits 0 Evaluation Information Evaluation Date 11/05/22 PT-OP-B Current Condition Start: 11/05/22 17:32 Freq: Status: Active Protocol: Document 11/12/22 12:00 [facility] (Rec: 11/12/22 12:54 [facility] [id number]) Current Condition History of Current Condition Onset Date 11/07/22 Current Complaints B TKA History of Current Condition Pt returnes to PT after undergoing bilateral TKA on . Pt had a pre-op rehab appointment last week, and demonstrated good understanding of post-op rehab plans. Pt experiencing fairly minimal pain today, ambulating with FWW for support, not overly reliant on UEs. Pt currently pretty happy with mobility level. PT-OP-C Subjective Start: 11/05/22 17:32 Freq: Status: Active Protocol: Document 12/17/22 13:50 [facility] (Rec: 12/17/22 14:32 DC[facility] [id number]) OP-PT Subjective Patient Comments Patient Comments Pt reports she is feeling good overall, has returned to driving. Sees her surgeon for what is hopefully her last visit later this week. PT-OP-D Balance Start: 11/05/22 17:32 Freq: Status: Active Protocol: Document 11/12/22 12:00 [facility] (Rec: 11/12/22 12:54 DC[facility] [id number]) OP-PT Balance Assessment Sitting Balance Static Sitting Balance Ability Normal Dynamic Sitting Balance Ability Normal Standing Balance Static Standing Balance Ability Good Dynamic Standing Balance Ability Fair Jara Fall Scale Copyright Permission PT-OP-E Functional Tests Start: 11/05/22 17:32 Freq: Status: Active Protocol: Document 11/12/22 12:00 [facility] (Rec: 11/12/22 12:54 [facility] [id number]) Functional Tests 6 Minute Walk Test Distance 327 Device Used FWW Comments .91 ft/sec PT-OP-K Range of Motion Start: 11/05/22 17:32 Freq: Status: Active Protocol: Document 11/12/22 12:00 [facility] (Rec: 11/12/22 12:54 [facility] [id number]) Knee Goniometric Range of Motion Knee Right Knee ROM WFL No Patient Position Sitting Flexion Active (degrees) 90 Flexion Passive (degrees) 99 Extension Active (degrees) 0 Extension Passive (degrees) 0 Comments 8 deg extension lag Left Knee ROM WFL No Patient Position Sitting Flexion Active (degrees) 84 Flexion Passive (degrees) 90 Extension Active (degrees) 0 Comments No extension lag PT-OP-M Strength Start: 11/05/22 17:32 Freq: Status: Active Protocol: Document 11/12/22 12:00 [facility] (Rec: 11/12/22 12:54 [facility] [id number]) Knee Strength Knee Manual Muscle Testing Right Flexion (S2) 3 Fair Extension (L3) 3+ Fair+ Left Flexion (S2) 3 Fair Extension (L3) 3+ Fair+ PT-OP-Q Treatments Start: 11/05/22 17:32 Freq: Status: Active Protocol: Document 12/17/22 13:50 [facility] (Rec: 12/17/22 14:32 [facility] [id number]) Cardio Equipment Recumbent Bicycle Duration (Minutes) 6 Resistance 6 Seat Position 4 Other full rotations Gym Equipment Shuttle Recovery squats Resistance 87# Shuttle Recovery Platform Stable Reps/Time x20 Therapeutic Exercises Standing Exercises Abduction Standing Exercise Name Hip Abduction Side bilateral Resistance Green Reps/Minutes x15 TKE Standing Exercise Name TKE Side bilateral Resistance Lv 3 squats Standing Exercise Name mini at bar Side bilateral Reps/Minutes x15 step ups Side bilateral Equipment Used 6 in step Reps/Minutes x15 Comments 1 rail ext Standing Exercise Name Hip Extension Side bilateral Resistance Green Reps/Minutes x15 Manual Therapy Treatment Joint Mobilizations patellar Joint B Patella mobs Direction inf/sup Grade III Body Position Supine PT-OP-T Assessment and Plan Start: 11/05/22 17:32 Freq: Status: Active Protocol: Document 12/17/22 13:50 [facility] (Rec: 12/17/22 14:32 [facility] [id number]) Physical Therapy Assessment Goals Three Impairment Pt ambulates 327' with FWW during 6MWT [facility] Goal (LTG) Pt to increased distance ambulated during 6MWT to at least 709' without an AD. This puts her gait speed at >1.97 ft/sec, below which is indicative of further functional decline. LTG Duration 01/10/23 Two Impairment Knee flexion AROM limited to 90? R and 84? L [facility] Goal (LTG) Pt to increase bilateral flexion to 120? in order to improve ability to perform daily activities LTG Duration 01/10/23 One Impairment Pt does not have an appropriate home exercise program Short Term Goal (STG) Pt to be independent and compliant with an appropriate post-op HEP STG Duration 12/10/22 Assessment Summary Assessment Pt continues to make very good progress, approaching discharge levels. Follow-up with surgeon later this week, will likely discharge following her last scheduled PT visit in two weeks. Current A/P ROM measured at right 112 ?/125? and left 108?/118?. Physical Therapy Plan Frequency and Duration Frequency of Treatment 1-2x/week Plan of Care Start Date 11/12/22 Plan of Care End Date 01/10/23 Next Visit Focus/Plan Next Note Type Treatment Note Next Visit Plan Active/passive ROM, strengthening, weaning off AD as tolerated
--- NOTE | 2022-12-25 11:59 | PT.OPDS ---
Current Diagnoses Bilateral primary osteoarthritis of knee (12/17/22) Pain in right knee (12/17/22) Pain in left knee (12/17/22) Visit Care Team Role Provider Type Augustine San DO Family Provider Physician Primary Care Provider Specialty: Family Practice Address: [address] [place] [address], [id number] Email: Nigel Landaverde MD Attending Provider Non-Staff Referring Provider Specialty: Orthopedics Orthopedic Surgery Address: [address] [place] [address], [id number] Email: Visit Number Visit Number 6 Discharge Summary PT-OP-B Current Condition Start: 11/05/22 17:32 Freq: Status: Active Protocol: Document 11/12/22 12:00 DCW (Rec: 11/12/22 12:54 DCW [id number]) Current Condition History of Current Condition Onset Date 11/07/22 Current Complaints B TKA History of Current Condition Pt returnes to PT after undergoing bilateral TKA on . Pt had a pre-op rehab appointment last week, and demonstrated good understanding of post-op rehab plans. Pt experiencing fairly minimal pain today, ambulating with FWW for support, not overly reliant on UEs. Pt currently pretty happy with mobility level. PT-OP-C Subjective Start: 11/05/22 17:32 Freq: Status: Active Protocol: Document 12/17/22 13:50 DCW (Rec: 12/17/22 14:32 DCW [id number]) OP-PT Subjective Patient Comments Patient Comments Pt reports she is feeling good overall, has returned to driving. Sees her surgeon for what is hopefully her last visit later this week. PT-OP-D Balance Start: 11/05/22 17:32 Freq: Status: Active Protocol: Document 11/12/22 12:00 DCW (Rec: 11/12/22 12:54 DCW [id number]) OP-PT Balance Assessment Sitting Balance Static Sitting Balance Ability Normal Dynamic Sitting Balance Ability Normal Standing Balance Static Standing Balance Ability Good Dynamic Standing Balance Ability Fair Jara Fall Scale Copyright Permission PT-OP-E Functional Tests Start: 11/05/22 17:32 Freq: Status: Active Protocol: Document 11/12/22 12:00 DCW (Rec: 11/12/22 12:54 DCW [id number]) Functional Tests 6 Minute Walk Test Distance 327 Device Used FWW Comments .91 ft/sec PT-OP-K Range of Motion Start: 11/05/22 17:32 Freq: Status: Active Protocol: Document 11/12/22 12:00 DCW (Rec: 11/12/22 12:54 DCW [id number]) Knee Goniometric Range of Motion Knee Right Knee ROM WFL No Patient Position Sitting Flexion Active (degrees) 90 Flexion Passive (degrees) 99 Extension Active (degrees) 0 Extension Passive (degrees) 0 Comments 8 deg extension lag Left Knee ROM WFL No Patient Position Sitting Flexion Active (degrees) 84 Flexion Passive (degrees) 90 Extension Active (degrees) 0 Comments No extension lag PT-OP-M Strength Start: 11/05/22 17:32 Freq: Status: Active Protocol: Document 11/12/22 12:00 DCW (Rec: 11/12/22 12:54 DCW [id number]) Knee Strength Knee Manual Muscle Testing Right Flexion (S2) 3 Fair Extension (L3) 3+ Fair+ Left Flexion (S2) 3 Fair Extension (L3) 3+ Fair+ PT-OP-T Assessment and Plan Start: 11/05/22 17:32 Freq: Status: Active Protocol: Document 12/25/22 11:58 DCW (Rec: 12/25/22 11:59 DCW [id number]) Physical Therapy Assessment Assessment Summary Assessment Pt phoned clinic, canceled last remaining appointment, and requested discharge. Noted she is doing well and no longer needs therapy. Physical Therapy Plan Discharge Physical Therapy Discharge Reasons Patient Request Next Visit Focus/Plan Next Note Type Discharge Summary
== END 2022-12-26 14:39 | disposition home or self-care (01) ==
LOC: PHYS 13:45
PROVIDERS: Absent Provider Family Medicine; Family Provider Family Medicine; PCP Family Medicine; Referring Provider Orthopaedic Surgery; Visit Provider Orthopaedic Surgery
DX: M25.561 Pain in right knee (principal); M25.562 Pain in left knee; M17.0 Bilateral primary osteoarthritis of knee
CPT/HCPCS: 97110; 97116; 97140; 97161; 97164; 97535

== ENCOUNTER → 2022-12-20 07:05 | Outpatient (CLI) | payer SELFPAY ==
[2022-12-20 08:33] LABS: TSH w/ Reflex to FT4 5.35 uIU/mL (0.47-4.68)
[2022-12-20 09:06] LABS: Free T4, Direct Thyroxine 1.01 ng/dL (0.78-2.19)
== END ==
PROVIDERS: Family Provider Family Medicine; PCP Family Medicine; Referring Provider Family Medicine; Visit Provider Family Medicine
DX: E03.9 Hypothyroidism, unspecified (principal)
CPT/HCPCS: 36415; 84439; 84443

== ENCOUNTER → 2023-02-07 07:08 | Outpatient (CLI) | payer SELFPAY ==
[2023-02-07 08:55] LABS: TSH w/ Reflex to FT4 2.85 uIU/mL (0.47-4.68)
== END ==
PROVIDERS: Family Provider Family Medicine; PCP Family Medicine; Referring Provider Family Medicine; Visit Provider Family Medicine
DX: E03.9 Hypothyroidism, unspecified (principal)
CPT/HCPCS: 36415; 84443

== ENCOUNTER → 2024-08-04 07:18 | Outpatient (CLI) | payer SELFPAY ==
[2024-08-04 08:38] LABS: TSH w/ Reflex to FT4 4.14 uIU/mL (0.47-4.68)
== END ==
LOC: LAB 07:18
PROVIDERS: Family Provider Family Medicine; PCP Family Medicine; Referring Provider Family Medicine; Visit Provider Family Medicine
DX: E03.9 Hypothyroidism, unspecified (principal)
CPT/HCPCS: 36415; 84443

== ENCOUNTER → 2024-08-31 07:20 | Outpatient (CLI) | payer SELFPAY ==
[2024-08-31 08:56] LABS: C-Reactive Protein Quant 0.7 mg/dL (<1.0); Cholesterol 228 mg/dL (140-199); HDL Cholesterol 45 mg/dL (40-60); LDL Cholesterol Calculated 167 mg/dL (<100); Triglycerides 79 mg/dL (35-150)
[2024-08-31 09:27] LABS: Erythrocyte Sedimentation Rate 8 MM/HR (0-20)
== END ==
LOC: LAB 07:20
PROVIDERS: Family Provider Family Medicine; PCP Family Medicine; Referring Provider Family Medicine; Visit Provider Family Medicine
DX: E78.00 Pure hypercholesterolemia, unspecified (principal)
CPT/HCPCS: 36415; 80061; 85651; 86140